=== PATIENT | female | born 1985 | race Caucasian/White ===

== ENCOUNTER 2018-06-14 08:50 | Day surgery (SDC) | payer OTHER ==
[2018-06-14] MEDS ORDERED: Acetaminophen 500 MG TAB PO SCH (10:00)
[2018-06-14] MEDS ORDERED: Iron Sucrose Complex 500 MG in Sodium Chloride 0.9% 250 ML 250 ML IVPB SCH (10:00)
[2018-06-14 10:56] VITALS: BMI 37.3
[2018-06-14 11:11] VITALS: BP 134/67; TEMP 98.6
== END 2018-06-14 16:10 | disposition home or self-care (01) ==
LOC: L&D/OP 08:50
PROVIDERS: ATTEND Student in an Organized Health Care Education/Training Program
DX: O99.013 Anemia complicating pregnancy, third trimester (principal); Z3A.34 34 weeks gestation of pregnancy
CPT/HCPCS: 96361; 96365; 96366; 99284; J1756; J7050

== ENCOUNTER 2018-06-29 10:27 | Emergency (ER) | payer OTHER | END 2018-06-29 10:53 | disposition home or self-care (01) | LOC: SCSER 10:27 | DX: H00.013 Hordeolum externum right eye, unspecified eyelid (principal); F17.210 Nicotine dependence, cigarettes, uncomplicated | CPT/HCPCS: 99283 ==

== ENCOUNTER 2018-07-03 00:23 | Inpatient (IN) | payer OTHER ==
[2018-07-03 01:10] VITALS: BMI 37.8
[2018-07-03] MEDS ORDERED: Promethazine HCl 25 MG/ML VIAL IM PRN ×2 (01:52→04:47)
[2018-07-03] MEDS ORDERED: Ondansetron PF 4 MG/2 ML Vial IVP PRN ×2 (01:52→04:47)
[2018-07-03] MEDS ORDERED: Butorphanol Tartrate 1 MG/ML VIAL SLOW IVP PRN (01:52)
[2018-07-03] MEDS ORDERED: Acetaminophen 500 MG TAB PO PRN (01:52)
[2018-07-03] MEDS: Lactated Ringer's 1,000 ML IV SCH ×3 (01:59→09:05)
[2018-07-03] MEDS ORDERED: Lidocaine 1% (PF) 30 ML VIAL SC PRN (02:00)
[2018-07-03] MEDS ORDERED: Carboprost 250 MCG/ML AMP IM PRN (02:00)
[2018-07-03] MEDS ORDERED: Misoprostol 200 MCG TAB RC PRN (02:00)
[2018-07-03] MEDS ORDERED: HYDROcodone/Acetaminophen 5/325 mg Tablet PO PRN ×4 (02:00→14:56)
[2018-07-03] MEDS ORDERED: Methylergonovine 0.2 MG/ML VIAL IM PRN (02:00)
[2018-07-03] MEDS ORDERED: Ibuprofen 800 MG TAB PO PRN (02:00)
[2018-07-03] MEDS ORDERED: NS w/ Oxytocin 10 units 500 ML IV SCH ×2 (02:00)
[2018-07-03 02:14] LABS: Hemoglobin 9.5 g/dL (12.0-16.0); Mean Corpuscular Hemoglobin 21.6 pg (27.0-31.0); Mean Corpuscular Volume 69.4 fL (78.0-98.0); Mean Platelet Volume 11.2 fL (7.4-10.4); Platelet Count 377 thou/uL (130-400); RBC Distribution Width 23.5 % (11.5-14.5); Red Blood Cell (RBC) Count 4.39 mill/uL (4.20-5.40); White Blood Cell (WBC) Count 10.4 thou/uL (4.8-10.8)
[2018-07-03 02:52] LABS: HBSAg Index 0.24 S/CO (0-0.99); Hep B Surf Ag Non-Reactive S/CO (NonReactive)
[2018-07-03 04:02] LABS: Syphilis Antibody Nonreactive (Nonreactive); Syphilis Antibody Index 0.05 S/CO (<1.00 Non-Reactive)
[2018-07-03] MEDS ORDERED: Fentanyl 4 mcg/Bup 0.1% Cadd 0 ML ONE (04:13)
[2018-07-03] MEDS ORDERED: diphenhydrAMINE 50 MG/ML VIAL IVP PRN (04:47)
[2018-07-03] MEDS ORDERED: Naloxone HCl 0.4 mg/ml Vial IVP PRN ×2 (04:47)
[2018-07-03] MEDS ORDERED: Eucerin (Mineral Oil/Petrolatum,White) 30 gm Jar TOP PRN (04:47)
[2018-07-03] MEDS ORDERED: Lactated Ringer's 500 ML IV PRN (04:47)
[2018-07-03] MEDS ORDERED: Acetaminophen 325 MG TAB PO PRN (04:47)
[2018-07-03] MEDS ORDERED: ePHEDrine/0.9% NaCl/PF SYRINGE 50 mg/10 ml SLOW IVP PRN (04:47)
[2018-07-03] MEDS ORDERED: Communication Order-Pharmacy FS SCH (05:00)
[2018-07-03] MEDS: Fentanyl 4 mcg/Bupivacaine 0.1% Cassette 100 ML EPIDURAL SCH ×2 (05:01→11:17)
--- NOTE | 2018-07-03 08:44 | PDOC.LDHP ---
Labor and Delivery H&P Chief complaint: loss of fluid HPI: Patient carlo loomis last night at 1150 on07/02/18, when she arrived to hospital - she had regular contraction. Current gestational age (weeks): 37 (4) Due date: 07/20/18 Dating criteria: last menstrual period Grav: 2 Para: 1 OB History Details: PROM 34 weeks. Current complications: other (anemia) Past Medical History: obesity Current medications: pre- vitamins, iron Previous surgical history: cholecystectomy Allergies/Adverse Reactions: Allergies Allergy/AdvReac Type Severity Reaction Status Date / Time No Known Drug Allergies Allergy Verified 02/14/15 14:23 Social history: none - Physical Exam Vital signs reviewed and normal: yes General: resting Lungs: nonlabored breathing Abdomen: gravid FHT: category 2 (minimal varibility) - Vaginal Exam cm dilated: 7 Effacement: 100% Station: 0 - OB Labs Blood type: O RH: positive Antibody Screen: negative HIV: negative RPR: negative HEPSAg: negative 1 hour GCT: positive 3 hour GTT: negative GBS: negative Urine drug screen: negative Rubella: immune - Assessment L&D Assessment: term rupture in membranes - Plan Plan: admit to L&D -: pitocin if needed for augmentation.
[2018-07-03] MEDS ORDERED: Bupivacaine 0.25% 10 ML VIAL ONE (11:11)
[2018-07-03] MEDS ORDERED: Fentanyl 4 mcg/Bup 0.1% Cadd 100 ML ONE ×2 (11:13)
[2018-07-03] MEDS: NS / Oxytocin 40 units/1000ml 1,000 ML IV SCH ×2 (13:08→14:31)
--- NOTE | 2018-07-03 13:28 | PDOC.OPDEL ---
OB Operative/Delivery Note Delivery Dr/Surgeon: AMERICA jean Pre-Delivery Diagnosis: active labor, ruptured membrane Procedure/Post Delivery Dx: spontaneous vaginal delivery Weeks gestation: 37 Anesthesia: epidural - Findings A Sex: female - 1 min: 8 - 5 min: 9 - Additional Findings/Plan Placenta delivered: spontaneous Repaired Obstetrical Laceration: 2nd degree Estimated blood loss: 251mL Post delivery plan: routine recovery
[2018-07-03] MEDS ORDERED: Misoprostol 200 MCG TAB VAG PRN (14:56)
[2018-07-03] MEDS ORDERED: Benzocaine-Menthol 82.5 ML CAN TOP PRN (14:56)
[2018-07-03] MEDS ORDERED: Bisacodyl 10 MG SUPP PR PRN (14:56)
[2018-07-03] MEDS ORDERED: Lanolin Ointment 7 GM TUBE TOP PRN (14:56)
[2018-07-03] MEDS ORDERED: NS / Oxytocin 40 units/1000ml 1,000 ML IV SCH (14:56)
[2018-07-03] MEDS ORDERED: Milk Of Magnesia 30 ML UDCUP PO PRN (14:56)
[2018-07-03] MEDS: Ferrous Sulfate 325 MG TAB PO SCH (16:32)
[2018-07-03] MEDS: Docusate Calcium (SURFAK) 240 MG CAP PO SCH (20:33)
[2018-07-03] MEDS: Ibuprofen 800 MG TAB PO SCH (21:55)
[2018-07-04] MEDS: Ibuprofen 800 MG TAB PO SCH ×2 (05:59→13:55)
[2018-07-04 07:45] LABS: Hemoglobin 8.3 g/dL (12.0-16.0); Mean Corpuscular HGB CONC 31.5 g/dL (32.0-36.0); Mean Corpuscular Volume 69.7 fL (78.0-98.0); Mean Platelet Volume 11.1 fL (7.4-10.4); Platelet Count 348 thou/uL (130-400); RBC Distribution Width 24.1 % (11.5-14.5); Red Blood Cell (RBC) Count 3.79 mill/uL (4.20-5.40); White Blood Cell (WBC) Count 12.4 thou/uL (4.8-10.8)
[2018-07-04] MEDS: Docusate Calcium (SURFAK) 240 MG CAP PO SCH (08:29)
[2018-07-04] MEDS: Ferrous Sulfate 325 MG TAB PO SCH (08:29)
[2018-07-04] MEDS ORDERED: Adacel (T-DAP) 0.5 ML SYRINGE IM ONE (09:00)
[2018-07-04] MEDS ORDERED: Prenatal Vitamin 1 TAB PO SCH (09:00)
[2018-07-04 11:36] VITALS: BP 117/59; TEMP 98.4
== END 2018-07-04 15:50 | disposition home or self-care (01) | DRG 807 ==
LOC: L&D/OP 00:23 → L&D 01:09 → 3SW 15:32
PROVIDERS: ADMIT Obstetrics & Gynecology; ATTEND Obstetrics & Gynecology
PROC: 10E0XZZ Delivery of Products of Conception, External Approach (ICD-10-PCS; principal; 2018-07-03)
PROC: 0KQM0ZZ Repair Perineum Muscle, Open Approach (ICD-10-PCS; 2018-07-03)
DX: O99.02 Anemia complicating childbirth (principal); Z37.0 Single live birth; D64.9 Anemia, unspecified; Z90.49 Acquired absence of other specified parts of digestive tract; Z3A.37 37 weeks gestation of pregnancy; O70.1 Second degree perineal laceration during delivery
CPT/HCPCS: 36415; 51702; 85027; 86780; 86850; 86900; 86901; 87340; 99285; J2001

== ENCOUNTER 2023-05-21 12:21 | Emergency (ER) | payer OTHER, SELFPAY ==
[2023-05-21] MEDS ORDERED: Ketorolac Tromethamine 30 MG (1 mL) VIAL ONE (12:43)
== END 2023-05-21 14:51 | disposition home or self-care (01) ==
LOC: ERS 12:21
DX: S29.011A Strain of muscle and tendon of front wall of thorax, initial encounter (principal); F17.210 Nicotine dependence, cigarettes, uncomplicated; X58.XXXA Exposure to other specified factors, initial encounter
CPT/HCPCS: 71045; 93005; 96372; J1885